=== PATIENT | female | born 1975 | race African-American/Black ===

== ENCOUNTER 2021-07-02 21:20 | Emergency (ER) | payer MEDICAID ==
[~2021-07-02] VITALS: Ht 167.6 cm; Wt 77.0 kg
[2021-07-02] MEDS ORDERED: LORAZEPAM 0.5MG TABLET PO ONE (22:30)
[2021-07-02 23:30] VITALS: BP 137/87
== END 2021-07-02 23:30 | disposition home or self-care (01) ==
LOC: ER 21:20
DX: I25.10 Atherosclerotic heart disease of native coronary artery without angina pectoris (principal); Z88.0 Allergy status to penicillin
CPT/HCPCS: 36415; 71045; 84484; 93005; 99285